=== PATIENT | female | born 1985 | race Two or more races ===

== ENCOUNTER 2017-03-16 01:25 | Inpatient (IN) | payer OTHER ==
[~2017-03-16] VITALS: Ht 167.6 cm; Wt 66.7 kg
[2017-03-16] MEDS ORDERED: Lactated Ringer's 1,000 ML IV SCH ×2 (08:43→08:55)
[2017-03-16] MEDS ORDERED: Lactated Ringer's 1,000 ML IV PRN (09:07)
[2017-03-16] MEDS ORDERED: Methylergonovine 0.2 mg/mL Inj IM PRN (09:10)
[2017-03-16] MEDS ORDERED: Hemorrhage Kit, Post Partum XX ONE (09:10)
[2017-03-16] MEDS ORDERED: Oxytocin 10 Unit/mL Inj IM PRN (09:10)
[2017-03-16] MEDS ORDERED: Oxytocin 30 Units/500 mL LR 30 UNITS in IV Premix 1 EACH IV PRN ×2 (09:10→09:40)
[2017-03-16] MEDS ORDERED: Ondansetron 2 mg/mL 2 mL Inj IVPUSH PRN ×2 (09:10→12:30)
[2017-03-16] MEDS ORDERED: fentaNYL-PF 50 mCg/mL 2 mL Inj IVPUSH PRN (09:10)
[2017-03-16] MEDS ORDERED: Sodium Chloride LOK Flush 10 mL Syringe IVFLUSH PRN (09:10)
[2017-03-16] MEDS ORDERED: Carboprost 250 mCg/mL Inj IM PRN (09:10)
[2017-03-16 09:18] LABS: Mean Corpuscular Hemoglobin 20.3 pg (27.0-35.0)
--- NOTE | 2017-03-16 10:31 | HP ---
[address] [address] HISTORY AND PHYSICAL PATIENT: JAMES BREWER : 1985 MR#: [id number] ADMIT: 03/16/2017 JOB ID: [id number] DATE: 03/16/2017 CHIEF COMPLAINT: The patient presented for scheduled induction of labor. HISTORY OF PRESENTING ILLNESS: This is a 31-year-old, 1, para 0, at 41 weeks and 1 day gestation with expected date of delivery of March 08, 2017, dated by a 13 week ultrasound, presented for a scheduled induction of labor for late term . Patient having no complaints beside mild contractions. Good movements. No loss of fluid. No vaginal bleeding. Denies fever or rash. ASSESSMENT: 1. complicated with history of severe anemia earlier in the . Admission hemoglobin is 10.9 and hematocrit is 35.9. 2. History of mild intermittent asthma. Last use of inhaler was September 2016. 3. History of hemorrhoids. 4. History of generalized body aches. Normal bile acids. 5. History of hypothyroidism. Normal TSH earlier in the in November 2016. TSH was 2.8. PAST GYNECOLOGIC HISTORY: Menarche at age 13, regular menstrual cycles. No history of abnormal Pap smears. No history of sexually transmitted infections. control used in the past, control pills, caused some weight gain. Last menstrual period was June 14, 2016. PAST MEDICAL HISTORY: 1. History of asthma. 2. Chronic anemia. 3. Borderline hypothyroidism. PAST SURGICAL HISTORY: None. FAMILY HISTORY: Mother is healthy. Father with hypertension. Brother healthy. Cancer paternal grandmother has a liver cancer. No family history of twins. No family history of congenital, mental or developmental disease. History of stroke paternal grandfather at age 78. SOCIAL HISTORY: Denies smoking, alcohol or illicit drug abuse. REVIEW OF SYSTEMS: Comprehensive 10 point review of systems negative except for items in the history of presenting illness. PHYSICAL EXAMINATION: Vital signs: Blood pressure 134/82, heart rate 93, respiratory rate 16. heart tones, baseline 135, moderate variability, positive accelerations, no decelerations. Category 1 tracing. [place] contractions every 4-5 minutes. General: Alert, oriented to time, place and person. Head: Normocephalic, atraumatic. Neck: Supple. Chest: Equal air entry bilaterally. No added sounds. Cardiovascular: Regular rate and rhythm. Abdomen: Gravid. No tenderness. Estimated weight 7.5 pounds. Cervical examination: Cervix is 3 cm, 80% effaced, soft, +1 station and posterior Haas score of 10. LABORATORIES: labs: Blood type B positive, rubella immune, hepatitis B surface antigen negative, RPR negative, HIV nonreactive. Antibody screening negative at 11 weeks. Pap smear December 05, 2016. Diabetes screening within normal limits, 83 at 25 weeks. Group B strep negative on February 20, 2017. Admission labs: Hemoglobin 10.9, hematocrit 35.9, white blood cells 8.4, platelets 254. ASSESSMENT: This is a 31-year-old 1, para 0 at 41 weeks and 1 day here for induction of labor for late term . Favorable cervix. Reassuring heart tones, category 1 tracing. GBS negative. Rubella immune. Rh positive. PLAN: Discussed induction of labor, risks, benefits, and alternatives. Informed consent was signed at the office earlier. No further questions today. The patient desires to proceed with the induction as scheduled. Will start Pitocin.
[2017-03-16] MEDS ORDERED: fentaNYL 2 mCg/mL-Bupivicaine 0.125% 100 mL Premix EPIDURAL ONE (12:26)
[2017-03-16] MEDS ORDERED: Lactated Ringer's 500 ML IV ONE (12:29)
--- NOTE | 2017-03-16 12:29 | PCM.HPANE ---
Patient Data Surgeon Admitting Provider:Josie Koenig MD Attending Provider:Josie Koenig MD Primary Care Physician:Josie Koenig MD Other Provider:Lety Poon Anesthesia Reason for Visit Induction INDUCTION Ht/WT & BMI Body Mass Index Allergies Coded Allergies: No Known Allergies (Unverified , 03/16/17) Past Anesthesia History Anesthesia History: Denies:: Abnormal Airway Diabetes History Hx Diabetes?: No MRSA MRSA: No Medications Hypertension Medication: No History History of ENT Problems?: No HEENT History: Denies:: Abnormal Airway Denture Type: None Teeth Condition: Within Normal Limits Hx of Heart Problems?: No Cardiovascular History: Denies:: Coronary Artery Disease Hx of Respiratory Problem?: No Respiratory History: Denies:: Asthma Hx Neurologic Problems?: No Hx of GI Problems?: No Hx of Problems?: No Female Hx: Positive for:: Currently Hx Musculoskeletal Problems?: No Hx of Psycho/Social Problems?: No Hx Surgeries?: No Smoking Status: Never Smoker Stop/Bang Treated for Sleep Apnea?: No Do You Have a CPAP Machine?: No P-Blood Pressure: treated: No B- Body Mass Index > 35 kg/m2: No A- Age over 50: No N- Neck Large Circumference: No G- Gender Male: No GLORIA Risk Assessment: Low Risk, <3 Yes Risk Assessment Category Category 1A: Patient has history of documented sleep apnea, and HAS NOT received any narcotic, sedative or anesthesia administration during this stay. Category 1B: Patient has history of documented sleep apnea, and HAS received any narcotic , sedative or anesthesia administration during this stay Category 2: Patient has SUSPECTED Obstructive Sleep Apnea, and HAS received any narcotic , sedative or anesthesia administration during this stay. Category 3: Patient has SUSPECTED Obstructive Sleep Apnea and HAS NOT received narcotic, sedative or anesthesia administration during this stay. Category 4: Outpatient in Procedural Areas with known sleep apnea or who screen positive for High Risk via the STOP/BANG questionnaire. Exam Exam General Appearance: Alert, Oriented X3, Cooperative, No Acute Distress HEENT/AIRWAY: MP 1 Lungs: Clear to Auscultation, Normal Air Movement Heart: Exam Unremarkable, Regular Rate/Rhythm, No Murmurs/Rubs/Gallops Meds/Labs/Diagnostics Admission Meds Current Medications Lactated Ringer's (Lr) 1,000 ml @ 125 mls/hr Q8H IV Last administered on 09:28; Start 03/16/17 at 08:55 Acetaminophen (Tylenol) 975 mg ONCE ONCE PO Last administered on 03/16/17 11: 57; Start 03/16/17 at 11:55; Stop 03/16/17 at 11:56; Status DC Labs Test 03/16/17 08:20 White Blood Count 8.4th/mm3 (3.8-10.1) Red Blood Count 5.36mil/mm3 (3.90-5.20) Hemoglobin 10.9g/dL (12.0-15.6) Hematocrit 35.9% (35.0-46.0) Mean Corpuscular Volume 67.0fL (81-100) Mean Corpuscular Hemoglobin 20.3pg (27.0-35.0) Mean Corpuscular Hemoglobin Concent 30.4% (32.0-37.0) Red Cell Distribution Width 18.7% (12.3-15.4) Platelet Count 254bil/L (150-400) Plan Impression Patient chart reviewed, patient interviewed and anesthestic plan with risks, benefits, and alternatives discussed, and informed consent obtained. NPO per Anesth. Guidelines: Yes ASA Physical Status: ASA1 Normal Healthy Anesthetic Plan: Epidural Bene/Risks/Altern/Consents: Yes HP Complete Prior to Induction: Yes Edward Martin MD Mar 16, 2017 12:29
[2017-03-16] MEDS ORDERED: Atropine 1 mg/10 mL (Code) Syringe IVPUSH PRN (12:30)
[2017-03-16] MEDS ORDERED: EPHEDrine Sulfate 50 mg/mL Inj IVPUSH PRN (12:30)
[2017-03-16] MEDS: Lactated Ringer's 1,000 ML IV SCH ×4 (14:02→20:30)
[2017-03-16] MEDS: fentaNYL 2 mCg/mL-Bupiv 0.125% 100 ML EPIDURAL SCH (21:30)
[2017-03-17] MEDS: Lactated Ringer's 1,000 ML IV SCH (01:30)
[2017-03-17] MEDS: fentaNYL 2 mCg/mL-Bupiv 0.125% 100 ML EPIDURAL SCH (02:50)
[2017-03-17 07:45] LABS: Mean Corpuscular Hemoglobin 20.3 pg (27.0-35.0); Mean Corpuscular Volume 67.3 fL (81-100)
[2017-03-17] MEDS ORDERED: Phenylephrine/NS 100 mCg/mL 10 mL Syringe IVPUSH ONE (08:00)
[2017-03-17] MEDS ORDERED: Bupivacaine-MPF 0.75% 30 mL Inj ONE (08:00)
[2017-03-17] MEDS ORDERED: Morphine PF 1 mg/mL 10 mL Inj ONE (08:00)
[2017-03-17] MEDS ORDERED: CeFAZolin Inj 2 GM in IV Premix 1 EACH IV SCH (09:10)
[2017-03-17] MEDS ORDERED: Sodium Citrate-Citric Acid 15 mL Solution PO SCH (09:10)
[2017-03-17] MEDS ORDERED: fentaNYL-PF 50 mCg/mL 2 mL Inj IVPUSH PRN (10:30)
[2017-03-17] MEDS ORDERED: Atropine 0.4 mg/mL Inj IV PRN (10:30)
[2017-03-17] MEDS ORDERED: EPHEDrine Sulfate 50 mg/mL Inj IVPUSH PRN (10:30)
[2017-03-17] MEDS ORDERED: Sodium Chloride LOK Flush 10 mL Syringe IVFLUSH PRN (11:50)
[2017-03-17] MEDS ORDERED: Oxytocin 10 Unit/mL Inj IM PRN (11:50)
[2017-03-17] MEDS ORDERED: diphenhydrAMINE 50 mg Capsule PO PRN (11:50)
[2017-03-17] MEDS ORDERED: Methylergonovine 0.2 mg/mL Inj IM PRN (11:50)
[2017-03-17] MEDS ORDERED: Hemorrhage Kit, Post Partum XX ONE (11:50)
[2017-03-17] MEDS ORDERED: Oxytocin 30 Units/500 mL LR 30 UNITS in IV Premix 1 EACH IV PRN (11:50)
[2017-03-17] MEDS ORDERED: LANOlin HPA 7 Gm Ointment TOPICAL PRN (11:50)
[2017-03-17] MEDS ORDERED: Carboprost 250 mCg/mL Inj IM PRN (11:50)
--- NOTE | 2017-03-17 13:00 | OP ---
[address] [address] OPERATIVE REPORT PATIENT: JAMES BREWER : 1985 MR#: [id number] ADMIT: 03/16/2017 JOB ID: [id number] DATE OF SURGERY: 03/17/2017 PREOPERATIVE DIAGNOSIS(ES): 1. Intrauterine at 41 weeks and 2 days. 2. Non reassuring heart tones remote from delivery. 3. Possible prolonged rupture of membranes for 12-16 hours. POSTOPERATIVE DIAGNOSIS(ES): 1. Intrauterine at 41 weeks and 2 days. 2. Non reassuring heart tones remote from delivery. 3. Possible prolonged rupture of membranes for 12-16 hours. PROCEDURE: Primary section. SURGEON: Josie Koenig M.D. DIRECTOR OF FIELD SERVICE: Lola Gracia M.D. Carbon Rod Inserter was required for retraction, exposure and safe delivery of the and safe completion of the procedure. ESTIMATED BLOOD LOSS: 500 mL. ANESTHESIA: Epidural. IV FLUIDS: 1200 mL. URINE OUTPUT: 600 mL. COMPLICATIONS: None. INDICATION: This is a 31-year-old 1, para 0 presented for induction of labor for late term at 40 weeks and 1 day. Induction was started with Pitocin as cervix was favorable with Haas score of 10. On admission cervix was 3 cm, 80% effaced, soft, posterior, +1 station. The patient progressed in labor to 4-5 cm, then variable heart tone decelerations were noted and prolonged decelerations were noted. So Pitocin was turned off. Amnioinfusion was started. heart tones recovered back to category 1 tracing. Pitocin was restarted, then variable decelerations were noted again. Pitocin was turned off. Position changes and oxygen and IV fluids were given. Amnioinfusion was repeated with another 200 mL. Then, a running infusion at 100 mL/hour. Still patient suly spontaneously, then a strong contraction was noted and decelerations to the 60s that took 9 minutes to return to baseline of 120 and gradually return to the previous baseline of 135. The patient was offered a primary section for intolerance of labor with non-reassuring heart tones that is remote from delivery. Cervix at that time was 6 cm, 90% effaced and 0 station. Risks, benefits and alternatives of section were discussed with the patient in detail. All questions were answered. The patient desires to proceed with a primary section. One dose of 0.25 mg of terbutaline was given during the deceleration. FINDINGS: Normal uterus, tubes and ovaries. Cephalic presented female infant delivered in occiput anterior position with one nuchal cord that was released over the occiput. Fluid was thick meconium stained though light green in color, thickened consistency. Infant weight was 3442 g. Apgars were 1 at one minute, 4 at five minutes, 8 at six minutes. Meconium-stained amniotic fluid. DESCRIPTION OF PROCEDURE: After informed consent was obtained, the patient was taken to the operation room. Epidural anesthesia was bolused to adequate anesthesia. Vaginal prep was performed. The abdomen was prepped and draped in the usual sterile fashion. After confirmation of anesthesia adequacy, a Pfannenstiel skin incision was made at the level of two finger widths above the symphysis pubis. The initial incision was made with a scalpel, then was carried down to the fascia with Bovie cautery. The initial fascial incision was made with a scalpel and then was extended bilaterally with curved Kay scissors. The inferior aspect of the fascia was grasped in either side of the midline and the fascia was dissected off the underlying rectus muscles with blunt and sharp dissection. Then, attention was turned to the superior aspect of the fascia that was grasped in either side of the midline and was dissected off the underlying rectus muscles with blunt and sharp dissection. The rectus muscles were then in the midline. The peritoneum was identified and entered with sharp dissection. Then, the initial incision was then extended with sharp dissection and gentle bilateral traction. The bladder blade was placed to protect the bladder. The uterine incision was made in the lower uterine segment with a scalpel, then was extended bilaterally with bandage scissors in a curvilinear fashion. The infant's head was elevated out of the pelvis and brought out to the incision, delivered in an occiput anterior position. Nuchal cord was released over the occiput shoulders when delivered. Infant was limp at the delivery so cord was clamped and cut, and the infant was handed off to the waiting solar electric installer. Cord segment was collected for gases. The placenta was delivered manually. The uterus was exteriorized and cleared of any remaining clots and debris. Membranes and fluids were meconium stained. The uterine incision was closed with 0-Vicryl in a running interlocking fashion. Then, a second imbricating layer using 0-Vicryl was performed with good hemostasis. Additional [id number] stitch was placed on the left side of the incision to ensure hemostasis. The posterior cul-de-sac was cleared of any remaining clots and debris. The uterus was placed back into the abdominal cavity. Lateral gutters were cleared of any remaining clots and debris. The uterine incision was revisited and hemostasis was ensured. The peritoneum was approximated with 3-0 chromic in a running fashion. The subfascial layer was examined and noted to be hemostatic. The fascia was closed with 0-Vicryl in a running fashion. The subcutaneous layer was approximated with 2-0 chromic simple interrupted stitches. The skin was closed with 4-0 Monocryl in subcuticular fashion. Steri-Strips were applied. All instrument, needle, sponge counts were correct x2. The patient tolerated the procedure well and was transferred to the delivery room for recovery. The infant was admitted to the ICU for further observation. Josie Mead M.D. was present and scrubbed for the entire procedure.
[2017-03-17] MEDS ORDERED: Acetaminophen IV 1,000 MG in IV Premix 1 EACH IV ONE (15:05)
[2017-03-17] MEDS: oxyCODONE-Acetamin 5-325 mg Tablet PO PRN ×3 (17:49→23:54)
[2017-03-18] MEDS: oxyCODONE-Acetamin 5-325 mg Tablet PO PRN ×5 (04:42→22:09)
[2017-03-18 06:22] LABS: Mean Corpuscular Hemoglobin 20.3 pg (27.0-35.0)
[2017-03-18] MEDS: Sodium Chloride LOK Flush 10 mL Syringe IVFLUSH SCH (08:30)
[2017-03-18] MEDS: Lactated Ringer's 1,000 ML IV SCH ×3 (09:07→17:07)
[2017-03-18] MEDS: Ascorbic Acid 500 mg Tablet PO SCH (09:29)
--- NOTE | 2017-03-18 13:01 | PROG NOTE ---
[address] [address] PROGRESS NOTE PATIENT: JAMES BREWER : 1985 MR#: [id number] ADMIT: 03/16/2017 JOB ID: [id number] DATE: 03/18/2017 SUBJECTIVE: Patient is doing well this morning. Voiding, ambulating, tolerating p.o. intake. . OBJECTIVE: Vital signs are 115/69 for blood pressure. Respirations are 16. Pulse is 90. Temperature is 36.7 degrees centigrade. Heart is regular rate and rhythm. Positive S1, S2. Lungs clear to auscultation bilaterally. Abdomen firm. Uterine fundus palpated at the level of the umbilicus. Nondistended abdomen. Positive bowel sounds. Incision is clean, dry, and intact with appropriate tenderness around the incision. Steri-Strips in place. Perineum: No active bleeding. Lower extremities: No calf tenderness appreciated bilaterally. H and H this morning is 7.8 and 26.1. The patient started on iron supplementation. ASSESSMENT AND PLAN: Patient is a 31-year-old, postoperative day number one, status post primary section for nonreassuring heart tracing. Afebrile with stable vital signs. Anemia: Started on iron and vitamin C supplementation. Continue with postop care.
[2017-03-19] MEDS: oxyCODONE-Acetamin 5-325 mg Tablet PO PRN ×5 (01:40→23:18)
[2017-03-19 07:07] LABS: BASOPHILS % (AUTO) 0.4 % (0-3); EOSINOPHILS % (AUTO) 3.4 % (0-5); MONOCYTES % (AUTO) 10.1 % (4-12); Mean Corpuscular Hemoglobin 20.1 pg (27.0-35.0); Mean Corpuscular Volume 68.1 fL (81-100); NEUTROPHILS % (AUTO) 59.9 % (40-74); Platelet Count 197 bil/L (150-400)
[2017-03-19] MEDS: Ascorbic Acid 500 mg Tablet PO SCH (07:56)
[2017-03-19] MEDS: Sodium Chloride LOK Flush 10 mL Syringe IVFLUSH SCH ×2 (08:30→16:30)
--- NOTE | 2017-03-19 08:48 | PCM.DIOB ---
Obstetrical Disch Instruction Dates of Hospitalization Date of Hospital Admission Mar 16, 2017 at 07:42 Providers Admitting Physician: Josie Koenig MD Primary Care Physician: Josie Koenig MD Attending Physician: Josie Koenig MD Discharge Diagnosis Discharge Diagnosis Status post primary section Anemia Problems: (1) Status post primary low transverse section Status: Acute ICD Code: Z98.891 (2) Anemia Status: Acute ICD Code: D64.9 Additional Instructions Discharge Instructions Diet Discharge Diet: No restrictions Activity Discharge Activity-General: Pelvic Rest for 6 weeks (no sex, no tampon and no douching), Balance rest and activity, No lifting >10 pounds for 4-6 weeks Dressing and Incisional Care Hygiene: May shower, Wash incision with soap & water (then keep incision dry) Follow Up Plan Follow-up Provider (F9): Josie Koenig MD Follow-up appointment: Weeks (Two) for incision check then in 6 weeks for post- visit. Call your provider for: fever or chills, shortness of breath, heavy vaginal bleeding, heavy bleeding, epigastric pain, excessive constipation, vaginal discomfort, red painful breasts, other (leg swelling, pain, nausea and vomiting , headache or change in vision.) Josie Koenig MD Mar 19, 2017 08:48
[2017-03-19] MEDS ORDERED: Ascorbic Acid PO (08:52)
[2017-03-19] MEDS ORDERED: IBUP-1827 PO (08:52)
[2017-03-19] MEDS ORDERED: DOCU-41 PO (08:52)
[2017-03-19] MEDS ORDERED: Simethicone PO (08:52)
[2017-03-19] MEDS ORDERED: OXYC1TAB24 PO (08:52)
[2017-03-19] MEDS ORDERED: FERR-74 PO (08:52)
--- NOTE | 2017-03-19 08:53 | PCM.DC.OB ---
Obstetrical Discharge Summary Date of Service Mar 19, 2017 Date of hospital admission Mar 16, 2017 at 07:42 Providers Admitting Physician: Tran Fonseca MD Primary Care Physician: Tran Fonseca MD Attending Physician: Tran Fonseca MD Problems: (1) Status post primary low transverse section Status: Acute ICD Code: Z98.891 (2) Anemia Status: Acute ICD Code: D64.9 Hospital Course: This is a 31 year-old 1 , now para 1 was admitted for induction of labor at 41w1d 1. Status post primary low transverse section on 03/17/2017 at 41w2d for non-reassuring heart tones. 2. Post- anemia. COMPLICATED WITH: * History of severe anemia earlier in the . Admission hemoglobin is 10.9 and hematocrit is 35.9. * History of mild intermittent asthma. Last use of inhaler was September 2016. * History of hemorrhoids. * History of generalized body aches. Normal bile acids. * History of hypothyroidism. Normal TSH earlier in the in November 2016. TSH was 2.8. Normal TSH during this admission. OUTCOME: Cephalic presented female infant delivered in occiput anterior position with one nuchal cord that was released over the occiput. Fluid was thick meconium stained though light green in color, thickened consistency. Infant weight was 3442 g. Apgars were 1 at one minute, 4 at five minutes, 8 at six minutes. Meconium-stained amniotic fluid. DISCHARGE DAY EXAM: Postoperative day number 2, patient is ambulating, tolerating regular diet without nausea or vomiting and voiding without difficulty. Pain was well controlled. No chest pain, no headache or change in vision. VS: BP HR Respirations SaO2 Temp General: Alert, Oriented X3 Lungs: Clear to Auscultation, Clear to Percussion Heart: Regular Rate/Rhythm, Normal S1, Normal S2 Abdomen: Fundus firm Surgical Wound: Incision General Appearance: Steri Strips, Sutures, Intact, Well Approximated, Incision Healing, No Erythema, No Discharge Extremities: No tenderness/swelling, Edema 1+ Lochia: normal. LABS: Laboratory Tests 72 Hours Test 03/17/17 06:53 03/18/17 06:10 03/19/17 05:53 White Blood Count 13.8th/mm3 (3.8-10.1) 14.2th/mm3 (3.8-10.1) 9.6th/mm3 (3.8-10.1) Red Blood Count 4.83mil/mm3 (3.90-5.20) 3.84mil/mm3 (3.90-5.20) 4.17mil/mm3 (3.90-5.20) Hemoglobin 9.8g/dL (12.0-15.6) 7.8g/dL (12.0-15.6) 8.4g/dL (12.0-15.6) Hematocrit 32.5% (35.0-46.0) 26.1% (35.0-46.0) 28.4% (35.0-46.0) Mean Corpuscular Volume 67.3fL (81-100) 68.0fL (81-100) 68.1fL (81-100) Mean Corpuscular Hemoglobin 20.3pg (27.0-35.0) 20.3pg (27.0-35.0) 20.1pg (27.0-35.0) Mean Corpuscular Hemoglobin Concent 30.2% (32.0-37.0) 29.9% (32.0-37.0) 29.6% (32.0-37.0) Red Cell Distribution Width 18.1% (12.3-15.4) 17.9% (12.3-15.4) 17.9% (12.3-15.4) Platelet Count 208bil/L (150-400) 191bil/L (150-400) 197bil/L (150-400) Thyroid Stimulating Hormone (TSH) 1.790uIU/mL (0.450-4.500) Free Thyroxine 1.00ng/dL (0.82-1.77) Neutrophils (%) (Auto) 59.9% (40-74) Lymphocytes (%) (Auto) 25.5% (14-46) Monocytes (%) (Auto) 10.1% (4-12) Eosinophils (%) (Auto) 3.4% (0-5) Basophils (%) (Auto) 0.4% (0-3) labs: Blood type B positive, rubella immune, hepatitis B surface antigen negative, RPR negative, HIV nonreactive. Antibody screening negative at 11 weeks. Pap smear December 05, 2016. Diabetes screening within normal limits, 83 at 25 weeks. Group B strep negative on February 20, 2017. Disposition: home. Discharge Condition: stable. DISCHARGE INSTRUCTION: Diet Discharge Diet: No restrictions Activity Discharge Activity-General: Pelvic Rest for 6 weeks (no sex, no tampon and no douching), Balance rest and activity, No lifting >10 pounds for 4-6 weeks Dressing and Incisional Care Hygiene: May shower, Wash incision with soap & water (then keep incision dry) Follow Up Plan Follow-up Provider (F9): Tran Fonseca MD Follow-up appointment: Weeks (Two) for incision check then in 6 weeks for post- visit. Call your provider for: fever or chills, shortness of breath, heavy vaginal bleeding, heavy bleeding, epigastric pain, excessive constipation, vaginal discomfort, red painful breasts, other (leg swelling, pain, nausea and vomiting , headache or change in vision.) ([Simethicone]) 80 MG CHEW 80 MG PO QID PRN PRN for gas Prescribed by: TRAN FONSECA MD ([Ascorbic Acid]) 500 MG TABLET 500 MG PO DAILYWM Prescribed by: TRAN FONSECA MD Docusate Sodium (Colace) 100 Mg Capsule 100 MG PO BID PRN PRN For Constipation Prescribed by: TRAN FONSECA MD Ferrous Sulfate (Feosol) 325 Mg Tablet 325 MG PO BIDWM Prescribed by: TRAN FONSECA MD Ibuprofen (Ibuprofen) 600 Mg Tablet 600 MG PO Q6H PRN PRN For Pain Prescribed by: TRAN FONSECA MD oxyCODONE-Acetaminophen 5-325 mg (oxyCODONE-Acetaminophen 5-325 mg) 1 Each Tablet 1-2 TAB PO Q4H PRN PRN For Pain Prescribed by: MD Arya MARTINEZ Omaima A MD Mar 19, 2017 08:53
[2017-03-19] MEDS: Lactated Ringer's 1,000 ML IV SCH ×3 (09:07→17:07)
[2017-03-19] MEDS ORDERED: RANI150T11 PO (09:26)
[2017-03-19 10:25] VITALS: BP 112/68; PULSE 87; RESP 16
[2017-03-19] MEDS: Alum-Mag Hydrox-Simeth 30 mL Suspension PO PRN ×2 (13:11→20:17)
[2017-03-20] MEDS: oxyCODONE-Acetamin 5-325 mg Tablet PO PRN ×5 (04:51→22:18)
[2017-03-20] MEDS: Ascorbic Acid 500 mg Tablet PO SCH (09:28)
[2017-03-20 13:02] VITALS: RESP 15
--- NOTE | 2017-03-20 14:12 | NUR ---
Discharge canceled 03/19/17. Pain well managed today, patient ambulating, and caring for self and appropriately. Normal bowel tones auscultated in all four quadrants, belly soft, and non-distended. Mother very concerned about constipation. Encouraged to continue with stool softener, frequent movement, and good hydration, mother has had one stool post-operatively.
[2017-03-20] MEDS: Alum-Mag Hydrox-Simeth 30 mL Suspension PO PRN (15:09)
[2017-03-20 18:28] LABS: Mean Corpuscular Hemoglobin 20.3 pg (27.0-35.0); Mean Corpuscular Volume 67.7 fL (81-100)
--- NOTE | 2017-03-20 19:46 | PCM.PNOBPP ---
Subjective Date of Service Mar 20, 2017 Post : Primary [place] Delivery Pain Management: PO pain meds, Good Pain Control Gastrointestinal: Good Appetite, No N/V Postop Activity: Ambulate without Assist Labs Laboratory Tests 03/19/17 05:53: Neutrophils (%) (Auto) 59.9, Lymphocytes (%) (Auto) 25.5, Monocytes (%) (Auto) 10.1, Eosinophils (%) (Auto) 3.4, Basophils (%) (Auto) 0.4 03/20/17 18:20: White Blood Count 6.3, Red Blood Count 4.43, Hemoglobin 9.0, Hematocrit 30.0, Mean Corpuscular Volume 67.7, Mean Corpuscular Hemoglobin 20.3, Mean Corpuscular Hemoglobin Concent 30.0, Red Cell Distribution Width 18.1, Platelet Count 267, Hematology Comments Exam Vital Signs Vital Signs Vital Signs Date Time Temp Pulse Resp B/P Pulse Ox O2 Delivery O2 Flow Rate FiO2 03/20/17 13:02 36.4 81 15 131/81 Vital Signs: VS reviewed, concerns are (BP 139/90's ) Exam Abdomen: Fundus firm Extremities: Edema 1+, Other (DTR +2 B/L no clonus ) Lungs: Clear to Auscultation Heart: Regular Rate/Rhythm, Normal S1, Normal S2 General: Alert, Oriented X3 Surgical Wound : Incision General Appearence: Steri Strips, Sutures, Intact, Well Approximated, Incision Healing, No Erythemia, No Discharge, No Inflammatory Changes OB Post Assessment/Plan Assessment This is a 31 year-old 1 , now para 1 was admitted for induction of labor at 41w1d 1. POD#3 Status post primary low transverse section on 03/17/2017 at 41w2d for non-reassuring heart tones. 2. Post- anemia. 3. hypertension, possible preeclampsia , P/C ration negative 0.2, but mild elevation in AST and ALT, C/O of headache. Will hold discharge today to observe in patient for BP, possible discharge tomorrow. Infant discharge is held by nursing informatics clinical analyst for tachypnea. COMPLICATED WITH: * History of severe anemia earlier in the . Admission hemoglobin is 10.9 and hematocrit is 35.9. * History of mild intermittent asthma. Last use of inhaler was September 2016. * History of hemorrhoids. * History of generalized body aches. Normal bile acids. * History of hypothyroidism. Normal TSH earlier in the in November 2016. TSH was 2.8. Normal TSH during this admission. Problems: (1) Status post primary low transverse section Status: Acute ICD Code: Z98.891 (2) Anemia Status: Acute ICD Code: D64.9 Josie Koenig MD Mar 20, 2017 19:46
[2017-03-21] MEDS: Ascorbic Acid 500 mg Tablet PO SCH (08:56)
[2017-03-21] MEDS: oxyCODONE-Acetamin 5-325 mg Tablet PO PRN (08:57)
[2017-03-21 10:34] VITALS: BP 131/84; PULSE 65
== END 2017-03-21 11:58 | disposition home or self-care (01) | DRG 766 ==
LOC: FBC 07:42
PROVIDERS: ADMIT Obstetrics & Gynecology; ATTEND Obstetrics & Gynecology
PROC: 3E033VJ Introduction of Other Hormone into Peripheral Vein, Percutaneous Approach (ICD-10-PCS; 2017-03-16)
PROC: 10D00Z1 Extraction of Products of Conception, Low, Open Approach (ICD-10-PCS; principal; 2017-03-17 09:32)
DX: O76 Abnormality in fetal heart rate and rhythm complicating labor and delivery (principal); D64.9 Anemia, unspecified; O77.0 Labor and delivery complicated by meconium in amniotic fluid; O75.89 Other specified complications of labor and delivery; O48.0 Post-term pregnancy; Z37.0 Single live birth; O90.81 Anemia of the puerperium; Z3A.41 41 weeks gestation of pregnancy